=== PATIENT | male | born 1940 | race Caucasian/White ===

== ENCOUNTER 2018-02-06 05:33 | Inpatient (IN) ==
[2018-02-06] MEDS ORDERED: VANCOMYCIN 1,000 MG VIAL ONE (05:57)
[2018-02-06] MEDS ORDERED: ceFAZolin 1,000 MG VIAL ONE (05:57)
[2018-02-06] MEDS ORDERED: LACTATED RINGERS 1,000 ML IV SCH ×2 (06:00→09:00)
[2018-02-06] MEDS ORDERED: ceFAZolin 1,000 MG in SYRINGE 1 EACH IV ONE (06:30)
[2018-02-06] MEDS ORDERED: VANCOMYCIN INJ 1,000 MG in SODIUM CHLORIDE 0.9% 250 ML IV ONE ×2 (06:30→17:08)
[2018-02-06] MEDS ORDERED: TRANEXAMIC ACID 1,000 MG/10 ML VIAL ONE (06:36)
[2018-02-06] MEDS ORDERED: BACITRACIN OINT 0.9 GM PACK TOP ONE (06:36)
[2018-02-06] MEDS ORDERED: ALBUTEROL/IPRATROPIUM 3 ML NEB RESP TX ONE (07:33)
[2018-02-06] MEDS ORDERED: DIAZEPAM 5 MG TABLET PO ONE (07:33)
[2018-02-06] MEDS ORDERED: FAMOTIDINE 20 MG TABLET PO ONE (07:33)
[2018-02-06] MEDS ORDERED: DIAZEPAM 5 MG TABLET ONE (07:51)
[2018-02-06] MEDS ORDERED: FAMOTIDINE 20 MG TABLET ONE (07:51)
[2018-02-06] MEDS ORDERED: KETOROLAC 30 MG/1 ML VIAL ONE (08:05)
[2018-02-06] MEDS ORDERED: fentaNYL 100 MCG/2 ML VIAL ONE (08:05)
[2018-02-06] MEDS ORDERED: BUPIVACAINE SPINAL 0.75% 2 ML AMP SPINAL ONE (08:05)
[2018-02-06] MEDS ORDERED: ONDANSETRON 4 MG/2 ML VIAL IV PRN ×2 (08:56→09:07)
[2018-02-06] MEDS ORDERED: HYDROmorphone 2 MG/1 ML VIAL IV PRN (08:56)
[2018-02-06] MEDS ORDERED: NALOXONE 0.4 MG/ML VIAL IV PRN (08:56)
[2018-02-06] MEDS ORDERED: AZELASTINE NASAL 137 MCG/SPRAY 30 ML BOTTLE BOTH NARES PRN ×2 (09:04)
[2018-02-06] MEDS ORDERED: TRIAMCINOLONE 0.1% CREAM 15 GM TUBE TOP PRN (09:04)
[2018-02-06] MEDS ORDERED: FLUTICASONE 50 MCG NASAL SPRAY 16 GM BOTTLE BOTH NARES PRN (09:04)
[2018-02-06] MEDS ORDERED: oxyCODONE IR 5 MG TABLET PO PRN ×2 (09:07)
[2018-02-06] MEDS ORDERED: MORPHINE 4 MG/1 ML VIAL IV PRN ×2 (09:07)
[2018-02-06] MEDS ORDERED: ZALEPLON 5 MG CAPSULE PO PRN (09:07)
[2018-02-06] MEDS ORDERED: diphenhydrAMINE CAP 25 MG CAPSULE PO PRN (09:07)
[2018-02-06] MEDS ORDERED: MAGNESIUM HYDROXIDE SUSP 30 ML UDCUP PO PRN (09:07)
[2018-02-06] MEDS ORDERED: DEXTROSE 50% 25 GM/50 ML VIAL IV PRN (09:10)
[2018-02-06] MEDS ORDERED: GLUCAGON 1 MG VIAL IM PRN (09:10)
[2018-02-06] MEDS ORDERED: DULAGLUTIDE 0.5 MG SUBCUT SCH (09:15)
[2018-02-06] MEDS ORDERED: ROPIVACAINE 0.5% 30 ML VIAL ONE (10:48)
[2018-02-06] MEDS ORDERED: ACETAMINOPHEN 500 MG TABLET PO ONE ×2 (11:07→11:17)
[2018-02-06] MEDS ORDERED: HYDROCORTISONE 100 MG VIAL ONE (11:14)
[2018-02-06] MEDS ORDERED: LACTATED RINGERS 1,000 ML IV ONE (11:14)
[2018-02-06] MEDS ORDERED: SODIUM CHLORIDE 0.9% 200 ML IV ONE (11:14)
[2018-02-06] MEDS ORDERED: MIDAZOLAM 2 MG/2 ML VIAL ONE (11:14)
[2018-02-06] MEDS ORDERED: PROPOFOL 200 MG/20 ML VIAL IV ONE (11:14)
[2018-02-06] MEDS: LACTATED RINGERS 1,000 ML IV SCH ×3 (16:02→23:14)
[2018-02-06] MEDS: ceFAZolin 2,000 MG in PREMIX 1 EACH IV SCH ×2 (16:48→21:23)
[2018-02-06] MEDS: ACETAMINOPHEN 500 MG TABLET PO SCH ×2 (16:48→23:09)
[2018-02-06] MEDS: metFORMIN 500 MG TABLET PO SCH (16:48)
[2018-02-06] MEDS: KETOROLAC 30 MG/1 ML VIAL IV SCH ×3 (16:49→21:25)
[2018-02-06] MEDS: CLOTRIMAZOLE 10 MG TROCHE PO SCH ×4 (16:50→23:09)
[2018-02-06] MEDS: INSULIN LISPRO 100 UNIT/ML SUBCUT SCH ×3 (17:29→21:24)
[2018-02-06] MEDS: DOCUSATE SODIUM 100 MG CAPSULE PO SCH (21:24)
[2018-02-06] MEDS: MAGNESIUM CHLORIDE 64 MG TABLET PO SCH (21:24)
[2018-02-06] MEDS: SUCRALFATE 1 GM TABLET PO SCH (21:24)
[2018-02-07] MEDS: LACTATED RINGERS 1,000 ML IV SCH ×2 (02:20→06:27)
[2018-02-07] MEDS: KETOROLAC 30 MG/1 ML VIAL IV SCH (03:25)
[2018-02-07] MEDS: FONDAPARINUX 2.5 MG/0.5 ML SYRINGE SUBCUT SCH (03:25)
[2018-02-07 06:01] LABS: Basophils # 0.1 10*3/uL (0.0-0.2); Basophils % 0.4 % (0.0-0.8); Eosinophils # 0.3 10*3/uL (0.0-0.87); Eosinophils % 2.3 % (0.00-10.9); Hematocrit 29.8 VOL% (42.0-52.0); Hemoglobin 10.2 GM/DL (14.0-18.0); Immature Granulocytes % 0.6 %; Immature Granulocytes Absolute 0.07 #; Lymphocytes # 2.3 10*3/uL (1.4-4.0); Lymphocytes % 19.2 % (21.2-54.2); Mean Corpuscular HGB Conc 34.2 GM/DL (32-36); Mean Corpuscular Hemoglobin 31 PG (27-34); Mean Corpuscular Volume 89.2 FL (87-102); Mean Platelet Volume 11.8 FL (9.6-12.0); Monocytes # 1.7 10*3/uL (0.11-0.8); Monocytes % 14.2 % (1.7-12.7); Neutrophils # 7.5 10*3/uL (1.4-7.4); Neutrophils % 63.3 % (38.7-73.9); Platelet Count 122 T/CUMM (130-400); Red Blood Count 3.34 MC/CUMM (3.8-5.5); Red Cell Distribution Width 12.8 % (9.3-17.3); White Blood Count 11.8 T/CUMM (4-12)
[2018-02-07] MEDS: ACETAMINOPHEN 500 MG TABLET PO SCH ×2 (06:24→12:46)
[2018-02-07] MEDS: CLOTRIMAZOLE 10 MG TROCHE PO SCH ×5 (06:24→22:19)
[2018-02-07 06:27] LABS: Osmolality,Calculated 287.1 MOS/KG (273-304); Potassium 3.8 MMOL/L (3.5-5.1)
[2018-02-07] MEDS: INSULIN LISPRO 100 UNIT/ML SUBCUT SCH ×4 (07:04→20:25)
[2018-02-07] MEDS ORDERED: KETOROLAC 30 MG/1 ML VIAL IV SCH ×2 (07:30→10:00)
[2018-02-07] MEDS: metFORMIN 500 MG TABLET PO SCH ×2 (08:00→17:57)
[2018-02-07] MEDS ORDERED: MAGNESIUM CHLORIDE 64 MG TABLET PO SCH (09:00)
[2018-02-07] MEDS ORDERED: KETOROLAC 30 MG/1 ML VIAL ONE (11:05)
[2018-02-07] MEDS: SUCRALFATE 1 GM TABLET PO SCH ×2 (11:09→20:24)
[2018-02-07] MEDS: DOCUSATE SODIUM 100 MG CAPSULE PO SCH ×2 (11:10→20:25)
[2018-02-07] MEDS: FLUCONAZOLE 200 MG TABLET PO SCH (11:10)
[2018-02-07] MEDS: LOSARTAN 25 MG TABLET PO SCH (11:10)
[2018-02-07] MEDS: TAMSULOSIN 0.4 MG CAPSULE PO SCH (11:11)
[2018-02-07] MEDS: predniSONE 10 MG TABLET PO SCH (11:11)
[2018-02-07] MEDS: POLYETHYLENE GLYCOL POWDER 17 GM PACK PO SCH (11:11)
[2018-02-07] MEDS: amLODIPine 5 MG TABLET PO SCH (11:11)
[2018-02-07] MEDS: ATORVASTATIN 10 MG TABLET PO SCH (11:11)
[2018-02-07] MEDS: MAGNESIUM CHLORIDE 64 MG TABLET PO SCH ×2 (11:12→20:24)
[2018-02-07] MEDS ORDERED: ACETAMINOPHEN 500 MG TABLET ONE (12:44)
[2018-02-08] MEDS: FONDAPARINUX 2.5 MG/0.5 ML SYRINGE SUBCUT SCH (03:01)
[2018-02-08] MEDS: CLOTRIMAZOLE 10 MG TROCHE PO SCH ×2 (05:48→09:54)
[2018-02-08 06:40] LABS: Basophils # 0.1 10*3/uL (0.0-0.2); Basophils % 0.4 % (0.0-0.8); Eosinophils # 0.4 10*3/uL (0.0-0.87); Eosinophils % 2.2 % (0.00-10.9); Hematocrit 29.7 VOL% (42.0-52.0); Hemoglobin 10.4 GM/DL (14.0-18.0); Immature Granulocytes % 0.7 %; Immature Granulocytes Absolute 0.11 #; Lymphocytes # 2.8 10*3/uL (1.4-4.0); Lymphocytes % 17.6 % (21.2-54.2); Mean Corpuscular Hemoglobin 31 PG (27-34); Mean Corpuscular Volume 88.4 FL (87-102); Monocytes # 1.7 10*3/uL (0.11-0.8); Monocytes % 10.6 % (1.7-12.7); Neutrophils # 10.9 10*3/uL (1.4-7.4); Neutrophils % 68.5 % (38.7-73.9); Platelet Count 143 T/CUMM (130-400); Red Blood Count 3.36 MC/CUMM (3.8-5.5); Red Cell Distribution Width 12.9 % (9.3-17.3); White Blood Count 15.9 T/CUMM (4-12)
[2018-02-08 07:09] LABS: Osmolality,Calculated 285.3 MOS/KG (273-304); Potassium 3.8 MMOL/L (3.5-5.1)
[2018-02-08] MEDS: INSULIN LISPRO 100 UNIT/ML SUBCUT SCH ×2 (09:46→11:38)
[2018-02-08] MEDS: metFORMIN 500 MG TABLET PO SCH (09:47)
[2018-02-08] MEDS: SUCRALFATE 1 GM TABLET PO SCH (09:47)
[2018-02-08] MEDS: ATORVASTATIN 10 MG TABLET PO SCH (09:48)
[2018-02-08] MEDS: MAGNESIUM CHLORIDE 64 MG TABLET PO SCH (09:48)
[2018-02-08] MEDS: predniSONE 10 MG TABLET PO SCH (09:48)
[2018-02-08] MEDS: DOCUSATE SODIUM 100 MG CAPSULE PO SCH (09:48)
[2018-02-08] MEDS: TAMSULOSIN 0.4 MG CAPSULE PO SCH (09:48)
[2018-02-08] MEDS: amLODIPine 5 MG TABLET PO SCH (09:48)
[2018-02-08] MEDS: POLYETHYLENE GLYCOL POWDER 17 GM PACK PO SCH (09:48)
[2018-02-08] MEDS: LOSARTAN 25 MG TABLET PO SCH (09:48)
[2018-02-08] MEDS: FLUCONAZOLE 200 MG TABLET PO SCH (09:48)
[2018-02-08 11:48] VITALS: BP 145/71
== END 2018-02-08 14:30 | disposition home health service (06) | DRG 470 ==
LOC: N.OR 05:33 → N.SDSINP 05:34 → N.3E 09:07
PROVIDERS: ADMIT Orthopaedic Surgery; ATTEND Orthopaedic Surgery